=== PATIENT | male | born 1960 | race Two or more races ===

== ENCOUNTER 2020-08-12 11:12 | Outpatient (CLI) | payer OTHER | END 2020-08-12 11:16 | disposition home or self-care (01) | LOC: SONOGRAMA 11:12 | PROVIDERS: ATTEND Pathology Anatomic Pathology & Clinical Pathology | DX: D34 Benign neoplasm of thyroid gland (principal); E04.1 Nontoxic single thyroid nodule; E04.8 Other specified nontoxic goiter ==